=== PATIENT | female | born 1985 | race Caucasian/White ===

== ENCOUNTER 2025-02-25 10:42 | Emergency (ER) | payer OTHER ==
[~2025-02-25] VITALS: Ht 160 cm; Wt 59.1 kg
[2025-02-25 10:46] VITALS: TEMP 97.9
[2025-02-25] MEDS ORDERED: MEDR150V13 IM (10:51)
[2025-02-25 12:40] VITALS: BP 123/90; PULSE 89; RESP 16; O2SAT 100
== END 2025-02-25 13:17 | disposition home or self-care (01) ==
LOC: EMS 10:45
DX: M79.604 Pain in right leg (principal); M79.605 Pain in left leg; F41.9 Anxiety disorder, unspecified; F32.A Depression, unspecified; Z88.5 Allergy status to narcotic agent; Z88.8 Allergy status to other drugs, medicaments and biological substances; Z79.3 Long term (current) use of hormonal contraceptives; Z86.718 Personal history of other venous thrombosis and embolism
CPT/HCPCS: 93970; 99284; Z7502